=== PATIENT | female | born 1935 | race Caucasian/White ===

== ENCOUNTER → 2017-03-04 | Outpatient (CLI) | payer MEDICARE ==
[~2017-03-04] MED LIST: EZET10TA18 PO; LEVO125T PO; METO25TA35 PO; MYCO500T3 PO
== END | disposition home or self-care (01) ==
LOC: ROC 09:35
PROVIDERS: ATTEND Radiology Radiation Oncology
DX: Z08 Encounter for follow-up examination after completed treatment for malignant neoplasm (principal); D05.11 Intraductal carcinoma in situ of right breast; M32.9 Systemic lupus erythematosus, unspecified; Z79.01 Long term (current) use of anticoagulants; Z88.0 Allergy status to penicillin
CPT/HCPCS: G0463

== ENCOUNTER → 2018-02-23 | Outpatient (CLI) | payer MEDICARE | END | disposition home or self-care (01) | LOC: ROC 09:18 | PROVIDERS: ATTEND Radiology Radiation Oncology | DX: Z08 Encounter for follow-up examination after completed treatment for malignant neoplasm (principal); C50.911 Malignant neoplasm of unspecified site of right female breast | CPT/HCPCS: G0463 ==

== ENCOUNTER → 2020-01-03 | Outpatient (CLI) | payer MEDICARE ==
[~2020-01-03] MED LIST changes: -EZET10TA18 PO; +EZET10TA70 PO
== END | disposition home or self-care (01) ==
LOC: ROC 09:37
PROVIDERS: ATTEND Radiology Radiation Oncology
DX: D05.11 Intraductal carcinoma in situ of right breast (principal)
CPT/HCPCS: G0463

== ENCOUNTER 2021-01-01 07:41 | Outpatient (CLI) | payer MEDICARE | END 2021-01-01 23:59 | disposition home or self-care (01) | LOC: ROC 07:41 | PROVIDERS: ATTEND Radiology Radiation Oncology | DX: Z08 Encounter for follow-up examination after completed treatment for malignant neoplasm (principal); Z85.3 Personal history of malignant neoplasm of breast | CPT/HCPCS: G0463 ==